=== PATIENT | male | born 1985 | race American Indian/Alaskan Native ===

== ENCOUNTER → 2017-11-11 | Day surgery (SDC) | payer MEDICAID ==
[2017-11-02 13:33] VITALS: BMI 44.3
[~2017-11-11] MED LIST: Bupivacaine HCl 0.25% PF (30 ml) Inj ONE; HYDROmorphone 0.5 mg/0.5 ml ISec IVP PRN; Lidocaine/Epinephrine 1% 1:100000 10 ML IJ ONE; Midazolam 2 MG/2 ML VIAL ONE; Neostigmine Methylsulfate 3mg/3ml Syringe IV ONE; Propofol 10 mg/ml Inj (20 ML) ONE; Rocuronium 10 mg/ml (5 ml) ONE; Succinylcholine Chloride 20 mg/ml Syr (5 ml) IV ONE; ceFAZolin 1 gm in NS 2 GM/200 ML BAG IVPB ONE
[2017-11-11] MEDS: Bupivacaine HCl 0.25% PF (30 ml) Inj ONE ×2 (08:23→10:02)
--- NOTE | 2017-11-11 10:28 | PCM.SURG1 ---
Surgeon's Initial Post Op Note - Surgeon's Notes Surgeon: Mike Berry MD Product Grader: CLEMENT Forrester Type of Anesthesia: General Endo Pre-Operative Diagnosis: Umbilical hernia. Morbid obesity Operative Findings: Umbilical hernia 2x2 cm. Morbid obesity Post-Operative Diagnosis: Umbilical hernia. Morbid obesity Operation Performed: Robotic Umbilical hernia repair with mesh. Lap B/L TAP block placement Specimen/Specimens Removed: umbilical hernial sac and content Estimated Blood Loss: EBL {In ML}: 10 Blood Products Given: N/A Drains Used: No Drains Post-Op Condition: Good Date of Surgery/Procedure: 11/11/17 Time of Surgery/Procedure: 10:28
[2017-11-11 11:41] VITALS: O2SAT 100
[2017-11-11 13:46] VITALS: BP 136/70; PULSE 70; RESP 18; TEMP 98
--- NOTE | 2017-11-11 20:08 | OP ---
PROCEDURE DATE: 11/11/2017 PREOPERATIVE DIAGNOSES: 1. Umbilical hernia. 2. Morbid obesity. POSTOPERATIVE DIAGNOSES: 1. Umbilical hernia of 2 x 2 cm size with containing preperitoneal fat. 2. Morbid obesity. PROCEDURES: 1. Robotic umbilical hernia repair with mesh. 2. Laparoscopic bilateral TAP block placement. SURGEON: Tom Berry MD ENTER[employer]ISE DATA ARCHITECT: RANDY Forrester TYPE OF ANESTHESIA: General endotracheal tube anesthesia. ESTIMATED BLOOD LOSS: Around 10 mL DRAINS: None. PATHOLOGY: The hernial sac and content was sent to pathology. COMPLICATIONS: None. INTRAOPERATIVE FINDINGS: The patient had approximately 2 x 2 cm defect of umbilical hernia containing preperitoneal fat. The patient had extensive morbid obesity. DESCRIPTION OF PROCEDURE: On intraoperative steps, this 32-year-old male was diagnosed with umbilical hernia and the patient was consented for robotic umbilical hernia repair with mesh, brought to the OR, placed supine on the operating table. After induction of the general anesthesia, the abdomen was prepped and draped in the usual sterile fashion. The left upper quadrant incision was made using Visiport technique. Peritoneal cavity was entered. Pneumo was created. Another 3/8 mm port was placed in the left upper quadrant, left flank, and left lower quadrant. Robot was brought in. Camera arm as well as arm 1 and arm 2 was docked, and the hernial sac and content was reduced back into the peritoneal cavity. The defect was closed with # Prolene V-Loc suture in 2-layer and the 9 cm mesh was implanted with 2-0 PDS V-Loc suture and after proper implantation of the mesh, the laparoscopic bilateral TAP block was given after undocking the robot in and taking the instruments out and after completion of the TAP block bilaterally, 30:30 mL of Marcaine was given and after that, all the ports were taken out under vision, pneumo was deflated. The specimen was taken out, and it was sent off the table for pathology and all the port sites were closed in two layers, subcu with 2-0 Vicryl, skin with 4-0 Monocryl and dry sterile dressing was applied. The patient tolerated the procedure well. Count of instrument and gauze was correct. There was no apparent complication. The patient was extubated in OR and sent to the postanesthesia care unit in stable condition. Tom Berry MD [facility] # [id number]
== END | disposition home or self-care (01) ==
LOC: C.SDS 05:38
PROVIDERS: ATTEND Surgery Surgical Critical Care
DX: K42.9 Umbilical hernia without obstruction or gangrene (principal); E66.01 Morbid (severe) obesity due to excess calories
CPT/HCPCS: 49652; 64488; 88302; C1781; J0690; J1170; J2001; J2250; J2405; J2704; J2710; J3010